=== PATIENT | female | born 1985 | race Native Hawaiian/Other Pacific Islander ===

== ENCOUNTER 2022-07-14 00:28 | Emergency (ER) | payer OTHER, SELFPAY ==
[2022-07-14 00:37] VITALS: BP 111/62; PULSE 82; RESP 16; TEMP 36.7; O2SAT 97; BMI 25.7
--- NOTE | 2022-07-14 00:53 | ED_ITS ---
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 She is also complaining of some tingling in her hands. She states she has had pain in her lower back in the past but that was many years ago. She saw physical therapy in the symptoms eventually resolved on their own. States that she normally works nights. She was woken earlier today to help with some ropes on the ship as they were docking. She states there was not want specific incident that caused any discomfort. She then went back to bed and when she woke up again to go to her shift is when she had the discomfort. Has not tried anything for symptoms prior to arrival. No fevers. No urinary symptoms. No change in bowel habits. Related Data Previous Rx's Medication Instructions Recorded cyclobenzaprine 10 mg tablet 10 mg PO TID PRN muscle spasm #10 07/14/22 tabs Allergies Allergy/AdvReac Type Severity Reaction Status Date / Time No Known Drug Allergies Allergy Verified 07/14/22 01:00 Review of Systems Gastrointestinal Gastrointestinal: Reports system reviewed and no additional complaints, except as documented Genitourinary Genitourinary: Reports system reviewed and no additional complaints, except as documented Musculoskeletal Musculoskeletal: Reports system reviewed and no additional complaints, except as documented Integumentary/Breasts Skin/Breast: Reports system reviewed and no additional complaints, except as documented Exam Initial Vital Signs Initial Vital Signs: Vital Signs Temperature 98.0 F 07/14/22 00:37 Pulse Rate 82 07/14/22 00:37 Respiratory Rate 16 07/14/22 00:37 Blood Pressure 111/62 07/14/22 00:37 Pulse Oximetry 97 07/14/22 00:37 Oxygen Delivery Method Room Air 07/14/22 00:37 Back/Spine/Pelvis Other: Tenderness to palpation in the thoracic and lower back and right-sided paraspinal and also discomfort along the right-sided scapula. Skin General: no rashes or lesions noted Neuro General: patient alert, patient awake and moves all extremities Course Orders Ordered: Discontinued Medications Cyclobenzaprine HCl (Cyclobenzaprine 10 Mg Prepack) 1 bottle MISC SEEINSTR ONE Stop: 07/14/22 01:56 Hydromorphone HCl (Hydromorphone 1 Mg Inj) 1 mg IM NOW ONE Stop: 07/14/22 00:55 Last Admin: 07/14/22 01:03 Dose: 1 mg Documented By: FIGUEROA Ketorolac Tromethamine (Ketorolac 30 Mg/Ml Vial) 30 mg IM NOW ONE Stop: 07/14/22 00:55 Last Admin: 07/14/22 01:04 Dose: 30 mg Documented By: FIGUEROA Vital Signs Vital signs: Vital Signs - 8 hr 07/14/22 00:37 Temperature 98.0 F Pulse Rate 82 Respiratory Rate 16 Blood Pressure 111/62 Pulse Oximetry 97 Oxygen Delivery Method Room Air MDM - Back Pain/Injury MDM Narrative Medical decision making narrative: Patient's symptoms today are consistent with musculoskeletal. No indication for radiologic studies. Low suspicion for fractures. Low suspicion for cauda equina. No trauma. Will discharge patient home with muscle relaxers and some time off work and I suspect that her symptoms will improve over the next couple days she was given precautions. She expressed understanding and agreement. Discharge Plan Departure Patient Disposition: Home Clinical Impression: Back strain Instructions: Low Back Pain Activity Restrictions/Additional Instructions: I suspect the symptoms will improve over the next couple days with rest and also the muscle relaxes. I do recommend that you try other conservative measures such as anti-inflammatories such as Naprosyn. You can also use heat and ice and massage and light stretching. Return to the emergency department for any new symptoms. Prescriptions: New cyclobenzaprine 10 mg tablet 10 mg PO TID PRN (Reason: muscle spasm) Qty: 10 0RF Stand Alone Forms: Patient Portal/API, Work Release Note
[2022-07-14] MEDS: HYDROMORPHONE 1 MG INJ IM (01:03)
[2022-07-14] MEDS: KETOROLAC 30 MG/ML VIAL IM (01:04)
[2022-07-14] MEDS: CYCLOBENZAPRINE 10 MG PREPACK 1 BOTTLE MISC (02:09)
[2022-07-14 02:12] VITALS: BP 128/64; PULSE 74; RESP 16; TEMP 36.2; O2SAT 98
== END 2022-07-14 02:13 | disposition home or self-care (01) ==
PROVIDERS: Emergency Provider Emergency Medicine
DX: S39.012A Strain of muscle, fascia and tendon of lower back, initial encounter (principal); X50.1XXA Overexertion from prolonged static or awkward postures, initial encounter; Y99.0 Civilian activity done for income or pay
CPT/HCPCS: 96372; 99283; J1170; J1885

== ENCOUNTER → 2022-08-11 13:04 | Outpatient (CLI) | payer OTHER, MEDICAID, SELFPAY ==
[2022-08-11 13:58] LABS: Influenza A - CEPHEID Flu A NEGATIVE (NEGATIVE); Influenza B - CEPHEID Flu B NEGATIVE (NEGATIVE); Respiratory Syncytial Virus Negative (Negative)
[2022-08-11 14:09] LABS: COVID-19 CEPHEID 4-PLEX PCR Negative (Negative)
== END ==
PROVIDERS: Visit Provider Nurse Practitioner Family
DX: J02.9 Acute pharyngitis, unspecified (principal)
CPT/HCPCS: 0241U; 87070; 87147; 87880